=== PATIENT | female | born 1960 | race Caucasian/White ===

== ENCOUNTER 2017-12-09 17:28 | Emergency (ER) | payer MEDICAID, OTHER ==
[~2017-12-09] VITALS: Ht 170.2 cm; Wt 90.7 kg
[~2017-12-09 17:28] MED LIST: IBUPROFEN400 MG PO
[2017-12-09] MEDS ORDERED: UNOBMED (17:36)
[2017-12-09] MEDS ORDERED: Meclizine 25mg tab ORAL STA (17:57)
[2017-12-09] MEDS ORDERED: LORazepam Inj 2mg/ml 1ml IV ONE (18:00)
--- NOTE | 2017-12-09 18:49 | Diagnostic Imaging Report ---
EXAM: XR Chest, 1 View CLINICAL HISTORY: DIZZY TECHNIQUE: Frontal view of the chest. COMPARISON: Chest radiograph 04/22/12 FINDINGS: Lungs: Mild hyperinflation. Minimal left base subsegmental atelectasis. Pleural space: Unremarkable. No pneumothorax. Heart: Unremarkable. No cardiomegaly. Mediastinum: Unremarkable. Bones/joints: Unremarkable. IMPRESSION: 1. Mild hyperinflation. 2. Minimal left base subsegmental atelectasis. 3. Otherwise no acute cardiopulmonary disease.
[2017-12-09 19:20] VITALS: BP 126/70
[2017-12-09 19:35] LABS: APPEARANCE,URINE SLIGHTLY CLOUDY; BILIRUBIN, URINE NEGATIVE (NEGATIVE); COLOR,URINE AMBER; GLUCOSE, URINE (UA) NEGATIVE (NEGATIVE); KETONES,URINE NEGATIVE (NEGATIVE); LEUKOCYTE ESTERASE ,URINE 2+ (NEGATIVE); NITRITE,URINE NEGATIVE (NEGATIVE); PH,URINE 5 (4.5-8.0); PROTEIN,URINE 1+ (NEGATIVE); UROBILINOGEN,URINE NORMAL MG/DL (0.0-1.0)
[2017-12-09 19:37] LABS: BASOPHILS % (AUTO) 0.8 % (0.0-2.0); EOSINOPHILS % (AUTO) 2.3 % (0.0-3.0); HEMATOCRIT 42.5 % (37.0-47.0); HEMOGLOBIN 14.3 G/DL (12.0-16.0); LYMPHOCYTES % (AUTO) 24.3 % (20.0-45.0); MEAN CORPUSCULAR VOLUME 85 FL (80-99); MONOCYTES % (AUTO) 5.2 % (1.0-10.0); NEUTROPHILS % (AUTO) 67.5 % (45.0-75.0); PLATELET COUNT 191 K/UL (150-450); RED BLOOD COUNT 4.99 M/UL (4.20-5.40); RED CELL DISTRIBUTION WIDTH 11.8 % (11.6-14.8); WHITE BLOOD COUNT 14.3 K/UL (4.8-10.8)
[2017-12-09 19:43] LABS: ANION GAP 10 mmol/L (5-15); BLOOD UREA NITROGEN 17 mg/dL (7-18); CALCIUM 9.2 MG/DL (8.5-10.1); CARBON DIOXIDE 27 MMOL/L (21-32); CHLORIDE 105 MMOL/L (98-107); CREATININE 0.8 MG/DL (0.55-1.30); POTASSIUM 4.7 MMOL/L (3.5-5.1); SODIUM 142 MMOL/L (136-145)
[2017-12-09 19:55] LABS: ALANINE AMINOTRANSFERASE 31 U/L (12-78); ALBUMIN 3.7 G/DL (3.4-5.0); ALBUMIN/GLOBULIN RATIO 0.9 (1.0-2.7); ALKALINE PHOSPHATASE 77 U/L (46-116); ASPARTATE AMINO TRANSFERASE 41 U/L (15-37); BILIRUBIN,TOTAL 0.4 MG/DL (0.2-1.0); CREATINE KINASE 103 U/L (26-308)
--- NOTE | 2017-12-09 20:02 | Emergency Room Report ---
History of Present Illness General Chief Complaint: Dizziness Source: Patient, EMS Present Illness HPI The patient presents with dizziness. She also has hot flashes for several months. When she has hot flashes she gets tinnitus in the right ear. This has been worsening with that feeling the world spinning for the last 3 days. She has intense anxiety when this happens. Yesterday she took piece of lorazepam to help her calm down. She denies any headache per se. There is no weakness no tingling. She has any fevers. She's not having vomiting and denies significant nausea at this time. She had a cholecystectomy. There was a question about whether there was cancer (excluded with path - polyps) but she has been anxious about possible cancer. Depressed but no SI. No chest pain, palpitations, dysuria, rashes. Dry eyes. Allergies: Coded Allergies: PINEAPPLE (Verified Allergy, Mild, Anaphylaxis, 04/19/12) Patient History Past Medical History: see triage record Social History: Denies: smoking, alcohol use, drug use Social History Narrative at home with and son Last Menstrual Period: Post Reviewed Nursing Documentation: PMH: Agreed; PSxH: Agreed Nursing Documentation-PMH Hx Hypertension: Yes Hx Gastrointestinal Problems: Yes - Bladder removed 01/2017. Review of Systems All Other Systems: negative except mentioned in HPI Physical Exam Vital Signs Date Time Temp Pulse Resp B/P (MAP) Pulse Ox O2 Delivery O2 Flow Rate FiO2 12/09/17 17:33 98.4 88 18 126/74 98 Room Air 98.4 Sp02 EP Interpretation: reviewed, normal General Appearance: well appearing, no apparent distress, GCS 15 Head: normocephalic Eyes: right eye other - R lid lag; bilateral eye PERRL, bilateral eye EOMI - no nustagmus ENT: TMs + canals normal, moist mucus membranes Neck: supple Respiratory: chest non-tender, lungs clear, normal breath sounds Cardiovascular #1: regular rate, rhythm Cardiovascular #2: 2+ radial (R) Gastrointestinal: normal inspection, non tender, soft, no mass Musculoskeletal: back normal, digits/nails normal, gait/station normal, normal range of motion, no calf tenderness Neurologic: oriented x3, responsive, education specialist III-XII nml as tested - with lid lag R , motor strength/tone normal, DTRs symmetric, cerebellar normal, normal gait, speech normal Psychiatric: anxious Skin: normal color, no rash Medical Decision Making Diagnostic Impression: Primary Impression: Dizziness Additional Impressions: UTI (urinary tract infection) Qualified Codes: N30.00 - Acute cystitis without hematuria Low TSH level Post menopausal syndrome Depression with anxiety ER Course Patient presents with vertigo without nausea. Differential includes central TIA , labyrinthitis, viral syndrome, postmenopausal hot flashes syndrome amongst others. We do exclude cardiac cause. The patient will be on a monitoring and evaluation advisor. We will with the patient up with EKG and labs. CT of the head is not indicated as there is no nystagmus and a nonfocal neurologic exam except for the lid lag on the right-hand side. EKG without injury. CXR normal. Labs with slight elevated WBC. Pyuria. TSH low. Rocephin given in ED. Improved with treatment in ED. Long discussion with patient and family of findings and need for further evaluation and treatment by PMD. Patient stable for outpatient observation and treatment. Laboratory Tests Test 12/09/17 19:15 White Blood Count 14.3 K/UL (4.8-10.8) H Red Blood Count 4.99 M/UL (4.20-5.40) Hemoglobin 14.3 G/DL (12.0-16.0) Hematocrit 42.5 % (37.0-47.0) Mean Corpuscular Volume 85 FL (80-99) Mean Corpuscular Hemoglobin 28.6 PG (27.0-31.0) Mean Corpuscular Hemoglobin Concent 33.6 G/DL (32.0-36.0) Red Cell Distribution Width 11.8 % (11.6-14.8) Platelet Count 191 K/UL (150-450) Mean Platelet Volume 8.9 FL (6.5-10.1) Neutrophils (%) (Auto) 67.5 % (45.0-75.0) Lymphocytes (%) (Auto) 24.3 % (20.0-45.0) Monocytes (%) (Auto) 5.2 % (1.0-10.0) Eosinophils (%) (Auto) 2.3 % (0.0-3.0) Basophils (%) (Auto) 0.8 % (0.0-2.0) Erythrocyte Sedimentation Rate Pending Prothrombin Time 10.0 SEC (9.30-11.50) Prothrombin Time INR 1.0 (0.9-1.1) PTT 23 SEC (23-33) Urine Color Mayra Urine Appearance Slightly cloudy Urine pH 5 (4.5-8.0) Urine Specific [place] 1.020 (1.005-1.035) Urine Protein 1+ (NEGATIVE) H Urine Glucose (UA) Negative (NEGATIVE) Urine Ketones Negative (NEGATIVE) Urine Occult Blood Negative (NEGATIVE) Urine Nitrite Negative (NEGATIVE) Urine Bilirubin Negative (NEGATIVE) Urine Ictotest Negative Urine Urobilinogen Normal MG/DL (0.0-1.0) Urine Leukocyte Esterase 2+ (NEGATIVE) H Urine RBC 0-2 /HPF (0 - 2) Urine WBC 10-15 /HPF (0 - 2) H Urine Squamous Epithelial Cells Many /LPF (NONE/OCC) H Urine Bacteria Few /HPF (NONE) Urine HCG, Qualitative Negative (NEGATIVE) Sodium Level 142 MMOL/L (136-145) Potassium Level 4.7 MMOL/L (3.5-5.1) Chloride Level 105 MMOL/L (98-107) Carbon Dioxide Level 27 MMOL/L (21-32) Anion Gap 10 mmol/L (5-15) Blood Urea Nitrogen 17 mg/dL (7-18) Creatinine 0.8 MG/DL (0.55-1.30) Estimate Glomerular Filtration Rate > 60 mL/min (>60) Glucose Level 110 MG/DL (74-106) H Calcium Level 9.2 MG/DL (8.5-10.1) Total Bilirubin 0.4 MG/DL (0.2-1.0) Aspartate Amino Transferase (AST) 41 U/L (15-37) H Alanine Aminotransferase (ALT) 31 U/L (12-78) Alkaline Phosphatase 77 U/L (46-116) Total Creatine Kinase 103 U/L (26-308) Troponin I 0.000 ng/mL (0.000-0.056) Pro-B-Type Natriuretic Peptide 37 pg/mL (0-125) Total Protein 7.9 G/DL (6.4-8.2) Albumin 3.7 G/DL (3.4-5.0) Globulin 4.2 g/dL Albumin/Globulin Ratio 0.9 (1.0-2.7) L Thyroid Stimulating Hormone (TSH) 0.332 uiU/mL (0.358-3.740) Urine Opiates Screen Negative (NEGATIVE) Urine Barbiturates Screen Negative (NEGATIVE) Phencyclidine (PCP) Screen Negative (NEGATIVE) Urine Amphetamines Screen Negative (NEGATIVE) Urine Benzodiazepines Screen Negative (NEGATIVE) Urine Cocaine Screen Negative (NEGATIVE) Urine Marijuana (THC) Screen Negative (NEGATIVE) EKG Diagnostic Results Rate: normal Rhythm: NSR ST Segments: no acute changes Rhythm Strip Diag. Results EP Interpretation: yes Rhythm: NSR, no PVC's, no ectopy Last Vital Signs Date Time Temp Pulse Resp B/P (MAP) Pulse Ox O2 Delivery O2 Flow Rate FiO2 12/09/17 21:25 98.2 89 16 122/72 98 Room Air 98.2 Status: improved Disposition: HOME, SELF-CARE Condition: Improved Scripts Lorazepam* (ATIVAN*) 0.5 Mg Tablet 0.5 MG ORAL THREE TIMES A DAY, #10 TAB Prov: Krishan Duval M.D. 12/09/17 Meclizine Hcl* (MECLIZINE*) 25 Mg Tablet 25 MG ORAL THREE TIMES A DAY PRN for for dizziness, #10 TAB Prov: Krishan Duval M.D. 12/09/17 Nitrofurantoin Monohyd/M-Cryst* (MACROBID 100 MG*) 100 Mg Capsule 100 MG ORAL EVERY 12 HOURS, #14 CAP Prov: Krishan Duval M.D. 12/09/17 Krishan Duval M.D. Dec 09, 2017 20:02
[2017-12-09] MEDS ORDERED: OMEPRAZOLE20 M2 ORAL (20:03)
[2017-12-09] MEDS ORDERED: IBUPROFEN600 MG ORAL (20:03)
[2017-12-09] MEDS ORDERED: CREON DR 36,001 EACH PO (20:03)
[2017-12-09] MEDS ORDERED: AMLODIPINE BESYL5 MG ORAL (20:03)
[2017-12-09] MEDS ORDERED: VITAMIN B COMP1 EAC2 ORAL (20:04)
[2017-12-09] MEDS ORDERED: OMEGA 3 1,0001 EACH PO (20:04)
[2017-12-09] MEDS ORDERED: LORAZEPAM0.5 MG ORAL (20:11)
[2017-12-09] MEDS ORDERED: cefTRIAXone 1 GM in NS 55 ML IVPB ONE (20:15)
[2017-12-09] MEDS ORDERED: MECLIZINE HCL25 MG ORAL (21:11)
[2017-12-09] MEDS ORDERED: NITROFURANTOIN100 M2 ORAL (21:11)
[2017-12-09 21:20] VITALS: BP 122/72
[2017-12-09] MEDS ORDERED: ATIVAN0.5 MG ORAL (21:22)
[2017-12-09 21:25] VITALS: BP 122/72
--- NOTE | 2017-12-12 14:13 | Cardiology Report ---
APPROVED REPORT EKG Measurement Heart [id number] Normal sinus rhythm Possible Left atrial enlargement Borderline ECG
== END 2017-12-09 22:45 | disposition home or self-care (01) ==
LOC: EDBD 17:28 → EMR 22:03
DX: N30.00 Acute cystitis without hematuria (principal); R42 Dizziness and giddiness; N95.9 Unspecified menopausal and perimenopausal disorder; F41.8 Other specified anxiety disorders; F32.9 Major depressive disorder, single episode, unspecified; I10 Essential (primary) hypertension; Z91.018 Allergy to other foods; Z90.49 Acquired absence of other specified parts of digestive tract; R94.6 Abnormal results of thyroid function studies
CPT/HCPCS: 36415; 71045; 80053; 80307; 81003; 81025; 82550; 83880; 84443; 84484; 85025; 85610; 85651; 85730; 87086; 93005; 96360; 96374; 96375; 99284; J0696

== ENCOUNTER 2018-01-16 18:40 | Emergency (ER) | payer MEDICAID ==
[~2018-01-16] VITALS: Ht 167.6 cm; Wt 83.9 kg
[~2018-01-16 18:40] MED LIST changes: +AMLODIPINE BESYL5 MG ORAL; +ATIVAN0.5 MG ORAL; +CREON DR 36,001 EACH PO; +IBUPROFEN600 MG ORAL; +LORAZEPAM0.5 MG ORAL; +MECLIZINE HCL25 MG ORAL; +NITROFURANTOIN100 M2 ORAL; +OMEGA 3 1,0001 EACH PO; +OMEPRAZOLE20 M2 ORAL; +UNOBMED; +VITAMIN B COMP1 EAC2 ORAL
[2018-01-16 19:40] VITALS: BP 141/95
[2018-01-16 19:56] LABS: BASOPHILS % (AUTO) 0.9 % (0.0-2.0); EOSINOPHILS % (AUTO) 1.3 % (0.0-3.0); HEMATOCRIT 41.8 % (37.0-47.0); HEMOGLOBIN 13.9 G/DL (12.0-16.0); LYMPHOCYTES % (AUTO) 33.4 % (20.0-45.0); MEAN CORPUSCULAR VOLUME 84 FL (80-99); MONOCYTES % (AUTO) 5.8 % (1.0-10.0); NEUTROPHILS % (AUTO) 58.7 % (45.0-75.0); PLATELET COUNT 188 K/UL (150-450); RED BLOOD COUNT 4.97 M/UL (4.20-5.40); RED CELL DISTRIBUTION WIDTH 12.3 % (11.6-14.8); WHITE BLOOD COUNT 12.1 K/UL (4.8-10.8)
[2018-01-16 19:57] LABS: APPEARANCE,URINE CLEAR; BILIRUBIN, URINE NEGATIVE (NEGATIVE); COLOR,URINE AMBER; GLUCOSE, URINE (UA) NEGATIVE (NEGATIVE); KETONES,URINE NEGATIVE (NEGATIVE); LEUKOCYTE ESTERASE ,URINE NEGATIVE (NEGATIVE); NITRITE,URINE NEGATIVE (NEGATIVE); PH,URINE 6 (4.5-8.0); PROTEIN,URINE NEGATIVE (NEGATIVE); UROBILINOGEN,URINE NORMAL MG/DL (0.0-1.0)
[2018-01-16 20:02] LABS: ANION GAP 9 mmol/L (5-15); BLOOD UREA NITROGEN 16 mg/dL (7-18); CALCIUM 9.4 MG/DL (8.5-10.1); CARBON DIOXIDE 28 MMOL/L (21-32); CHLORIDE 106 MMOL/L (98-107); POTASSIUM 3.4 MMOL/L (3.5-5.1); SODIUM 142 MMOL/L (136-145)
[2018-01-16 20:28] LABS: ALANINE AMINOTRANSFERASE 25 U/L (12-78); ALBUMIN 3.8 G/DL (3.4-5.0); ALKALINE PHOSPHATASE 77 U/L (46-116); ASPARTATE AMINO TRANSFERASE 19 U/L (15-37); BILIRUBIN,TOTAL 0.3 MG/DL (0.2-1.0); CKMB < 0.5 NG/ML (0.0-3.6); CREATINE KINASE 55 U/L (26-308)
[2018-01-16 20:40] VITALS: BP 136/90
[2018-01-16 21:40] VITALS: BP 139/88
--- NOTE | 2018-01-16 22:02 | Emergency Room Report ---
History of Present Illness General Chief Complaint: Generalized Weakness Source: Patient, Medical Record Present Illness HPI The patient states she has had multiple episodes of hot flashes that she states starts in her pelvis and then radiates to her head. She states that at times she is feels a bubbling sensation in her head. She states these episodes are debilitating. She states that these have been ongoing for many years, however, over the past few months the episodes become more severe and more debilitating. She has seen her primary care physician and has had an extensive workup to include hormonal testing and other laboratory testing. She will be seeing a design sales consultant. She denies fever or chills. She denies weakness. She has no other complaints. Allergies: Coded Allergies: PINEAPPLE (Verified Allergy, Mild, Anaphylaxis, 04/19/12) Patient History Past Medical History: see triage record, HTN Social History: Denies: smoking, alcohol use, drug use Last Menstrual Period: 4 yrs ago Reviewed Nursing Documentation: PMH: Agreed; PSxH: Agreed Nursing Documentation-PMH Past Medical History: No History, Except For Hx Hypertension: Yes Hx Gastrointestinal Problems: Yes - Bladder removed 01/2017. Review of Systems All Other Systems: negative except mentioned in HPI Physical Exam Vital Signs Date Time Temp Pulse Resp B/P (MAP) Pulse Ox O2 Delivery O2 Flow Rate FiO2 01/16/18 18:51 98.4 88 18 138/86 95 Room Air 98.4 Sp02 EP Interpretation: reviewed, normal General Appearance: no apparent distress, alert, GCS 15, non-toxic Head: normocephalic, atraumatic Eyes: bilateral eye normal inspection, bilateral eye PERRL ENT: hearing grossly normal, normal pharynx, no angioedema, normal voice Neck: full range of motion, supple/symm/no masses Respiratory: chest non-tender, lungs clear, normal breath sounds, no respiratory distress, no retraction, no accessory muscle use, speaking full sentences Cardiovascular #1: regular rate, rhythm, no edema Gastrointestinal: normal bowel sounds, non tender, soft, non-distended, no guarding, no rebound Rectal: deferred Musculoskeletal: back normal, gait/station normal, normal range of motion, non- tender Neurologic: alert, oriented x3, responsive, motor strength/tone normal, sensory intact, speech normal Psychiatric: judgement/insight normal, memory normal, mood/affect normal, no suicidal/homicidal ideation Skin: normal color, no rash, warm/dry, well hydrated Medical Decision Making Diagnostic Impression: Primary Impression: Post menopausal syndrome ER Course Suspect this patient has postmenopausal syndrome. She did undergo laboratory workup to include CBC, CMP and cardiac enzymes. She underwent an EKG which is unremarkable. She also underwent CT of the head which is also unremarkable. Unsure of the exact etiology of the patient's symptoms, however, I do not suspect an emergency medical condition. The patient is instructed to follow-up with an vinyl cutter and a design sales consultant. She is also instructed to use other methods of decreasing her anxiety. She is given close return precautions about instructions. Laboratory Tests Test 01/16/18 19:11 White Blood Count 12.1 K/UL (4.8-10.8) H Red Blood Count 4.97 M/UL (4.20-5.40) Hemoglobin 13.9 G/DL (12.0-16.0) Hematocrit 41.8 % (37.0-47.0) Mean Corpuscular Volume 84 FL (80-99) Mean Corpuscular Hemoglobin 28.0 PG (27.0-31.0) Mean Corpuscular Hemoglobin Concent 33.3 G/DL (32.0-36.0) Red Cell Distribution Width 12.3 % (11.6-14.8) Platelet Count 188 K/UL (150-450) Mean Platelet Volume 10.3 FL (6.5-10.1) H Neutrophils (%) (Auto) 58.7 % (45.0-75.0) Lymphocytes (%) (Auto) 33.4 % (20.0-45.0) Monocytes (%) (Auto) 5.8 % (1.0-10.0) Eosinophils (%) (Auto) 1.3 % (0.0-3.0) Basophils (%) (Auto) 0.9 % (0.0-2.0) Urine Color Mayra Urine Appearance Clear Urine pH 6 (4.5-8.0) Urine Specific [place] 1.020 (1.005-1.035) Urine Protein Negative (NEGATIVE) Urine Glucose (UA) Negative (NEGATIVE) Urine Ketones Negative (NEGATIVE) Urine Occult Blood Negative (NEGATIVE) Urine Nitrite Negative (NEGATIVE) Urine Bilirubin Negative (NEGATIVE) Urine Ictotest Negative Urine Urobilinogen Normal MG/DL (0.0-1.0) Urine Leukocyte Esterase Negative (NEGATIVE) Sodium Level 142 MMOL/L (136-145) Potassium Level 3.4 MMOL/L (3.5-5.1) L Chloride Level 106 MMOL/L (98-107) Carbon Dioxide Level 28 MMOL/L (21-32) Anion Gap 9 mmol/L (5-15) Blood Urea Nitrogen 16 mg/dL (7-18) Creatinine 1.0 MG/DL (0.55-1.30) Estimate Glomerular Filtration Rate 57.1 mL/min (>60) Glucose Level 97 MG/DL (74-106) Calcium Level 9.4 MG/DL (8.5-10.1) Total Bilirubin 0.3 MG/DL (0.2-1.0) Aspartate Amino Transferase (AST) 19 U/L (15-37) Alanine Aminotransferase (ALT) 25 U/L (12-78) Alkaline Phosphatase 77 U/L (46-116) Total Creatine Kinase 55 U/L (26-308) Creatine Kinase MB < 0.5 NG/ML (0.0-3.6) Creatine Kinase MB Relative Index 0.9 Troponin I 0.000 ng/mL (0.000-0.056) Total Protein 7.7 G/DL (6.4-8.2) Albumin 3.8 G/DL (3.4-5.0) Globulin 3.9 g/dL Albumin/Globulin Ratio 1.0 (1.0-2.7) EKG Diagnostic Results Rate: normal Rhythm: NSR ST Segments: no acute changes Rhythm Strip Diag. Results EP Interpretation: yes Rate: 90's Rhythm: NSR, no PVC's, no ectopy Chest X-Ray Diagnostic Results Chest X-Ray Diagnostic Results : Chest X-Ray Ordered: Yes # of Views/Limited/Complete: 1 View Indication: Other EP Interpretation: Yes Interpretation: no consolidation, no effusion, no pneumothorax, no acute cardiopulmonary disease Impression: No acute disease Electronically Signed by: Sravan CT/MRI/US Diagnostic Results CT/MRI/US Diagnostic Results : Imaging Test Ordered: Ct head Impression No acute findings. See official report. Last Vital Signs Date Time Temp Pulse Resp B/P (MAP) Pulse Ox O2 Delivery O2 Flow Rate FiO2 01/16/18 19:40 98.4 88 16 141/95 95 Room Air 98.4 Disposition: HOME, SELF-CARE Condition: Stable Referrals: MANDEEP KERN (PCP) Catherine Calabrese DO Jan 16, 2018 22:01
[2018-01-16 22:05] VITALS: BP 139/88
--- NOTE | 2018-01-17 08:59 | Diagnostic Imaging Report ---
Indication: Dyspnea Technique: One view of the chest Comparison: 12/09/2017 Findings: Inspiration is suboptimal. Aorta is tortuous. Lungs and pleural spaces are clear. Previously demonstrated left basilar atelectasis is no longer evident Impression: No acute process
--- NOTE | 2018-01-17 09:04 | Diagnostic Imaging Report ---
. Indication: Vertigo and weakness x3 months Technique: Continuous helical CT scanning of the head was performed without intravenous contrast material. Axial and coronal 5 mm sections were generated. Radiation dose was minimized using automated exposure control Dose: Total Dose Length Product - DLP 1287.[address] Dose Index - CTDIvol(s) 70.38 mGy. Comparison: none Findings: The ventricular system is normal in size and configuration. There is no shift of midline structures. No abnormal extra-axial fluid collections are noted. There is no evidence of intracerebral bleeding. No other abnormal high or low density areas are noted within the brain. Huang-white differentiation is normal. Intact calvarium. Mild calvarial hyperostosis. Visualized orbits and sinuses are unremarkable. The mastoids are clear Impression: Normal CT scan of the head without contrast material. This agrees with the preliminary interpretation provided overnight by [facility] teleradiology service. The CT scanner at [facility] is accredited by the [employer] and the scans are performed using protocols designed to limit radiation exposure to as low as reasonably achievable to attain images of sufficient resolution adequate for diagnostic evaluation.
--- NOTE | 2018-01-18 17:35 | Cardiology Report ---
APPROVED REPORT EKG Measurement Heart [id number] Normal sinus rhythm Possible Left atrial enlargement Borderline ECG
== END 2018-01-16 22:00 | disposition home or self-care (01) ==
LOC: EMR 19:29
DX: N95.9 Unspecified menopausal and perimenopausal disorder (principal); I10 Essential (primary) hypertension; R42 Dizziness and giddiness
CPT/HCPCS: 36415; 70450; 71045; 80053; 81003; 82550; 82553; 84484; 85025; 93005; 99284

== ENCOUNTER 2018-01-21 15:01 | Inpatient (IN) | payer MEDICAID ==
[~2018-01-21] VITALS: Ht 167.6 cm; Wt 87.1 kg
[2018-01-21 15:10] VITALS: BP_SYST 140; BP_SYST 143; BP_DIAS 70; BP_DIAS 73
[2018-01-21] MEDS ORDERED: Sodium Chloride 500ML 500 ML IV ONE (15:23)
[2018-01-21] MEDS ORDERED: Meclizine 25mg tab ORAL ONE (15:30)
[2018-01-21 16:03] LABS: BASOPHILS % (AUTO) 0.6 % (0.0-2.0); EOSINOPHILS % (AUTO) 1.2 % (0.0-3.0); HEMATOCRIT 40.8 % (37.0-47.0); HEMOGLOBIN 13.9 G/DL (12.0-16.0); LYMPHOCYTES % (AUTO) 31.4 % (20.0-45.0); MEAN CORPUSCULAR VOLUME 83 FL (80-99); NEUTROPHILS % (AUTO) 61.8 % (45.0-75.0); PLATELET COUNT 171 K/UL (150-450); RED BLOOD COUNT 4.94 M/UL (4.20-5.40); WHITE BLOOD COUNT 10.3 K/UL (4.8-10.8)
[2018-01-21 16:22] LABS: ANION GAP 11 mmol/L (5-15); BLOOD UREA NITROGEN 13 mg/dL (7-18); CALCIUM 9.5 MG/DL (8.5-10.1); CARBON DIOXIDE 25 MMOL/L (21-32); CHLORIDE 107 MMOL/L (98-107); CREATININE 0.7 MG/DL (0.55-1.30); POTASSIUM 3.8 MMOL/L (3.5-5.1); SODIUM 143 MMOL/L (136-145)
--- NOTE | 2018-01-21 16:24 | Emergency Room Report ---
History of Present Illness General Chief Complaint: Dizziness Source: Patient Present Illness HPI Patient presents with complaints of significant dizziness patient feels very weak Patient was here recently with similar complaints reports that this is been ongoing now for 2 weeks Denies any focal weakness patient does get increased nausea Denies any chest pain or shortness of breath denies any dysuria or frequency Denies any change in medications Denies any recent travel Allergies: Coded Allergies: PINEAPPLE (Verified Allergy, Mild, Anaphylaxis, 04/19/12) Patient History Past Medical History: see triage record Pertinent Family History: none Reviewed Nursing Documentation: PMH: Agreed; PSxH: Agreed Nursing Documentation-PMH Hx Hypertension: Yes Hx Gastrointestinal Problems: Yes - Bladder removed 01/2017. Review of Systems All Other Systems: negative except mentioned in HPI Physical Exam Vital Signs Date Time Temp Pulse Resp B/P (MAP) Pulse Ox O2 Delivery O2 Flow Rate FiO2 01/21/18 14:56 98.5 86 18 135/86 96 Room Air 98.4 Sp02 EP Interpretation: reviewed, normal General Appearance: no apparent distress - However appears generally weak Head: normocephalic, atraumatic Eyes: bilateral eye PERRL, bilateral eye EOMI ENT: normal pharynx, no angioedema Neck: full range of motion, supple Respiratory: chest non-tender, lungs clear Cardiovascular #1: regular rate, rhythm, no edema Gastrointestinal: normal bowel sounds, non tender, soft Musculoskeletal: normal inspection, back normal Neurologic: alert, oriented x3 Skin: normal color, no rash Lymphatic: no adenopathy Medical Decision Making Diagnostic Impression: Primary Impression: Dizziness ER Course Patient is a fairly complex patient with multiple differential to consideration including but not limited to neurological , neurosurgical ,cardiac cardiopulmonary and vascular emergencies Patient had recent CT of the head obtained this was not repeated Baseline blood work however were repeated all within normal limits Given the patient's symptomatic presentation and severe distress Patient requires further inpatient care with evaluation of cerebellar type differentials Labs Test 01/21/18 15:38 White Blood Count 10.3 K/UL (4.8-10.8) Red Blood Count 4.94 M/UL (4.20-5.40) Hemoglobin 13.9 G/DL (12.0-16.0) Hematocrit 40.8 % (37.0-47.0) Mean Corpuscular Volume 83 FL (80-99) Mean Corpuscular Hemoglobin 28.2 PG (27.0-31.0) Mean Corpuscular Hemoglobin Concent 34.1 G/DL (32.0-36.0) Red Cell Distribution Width 12.0 % (11.6-14.8) Platelet Count 171 K/UL (150-450) Mean Platelet Volume 9.7 FL (6.5-10.1) Neutrophils (%) (Auto) 61.8 % (45.0-75.0) Lymphocytes (%) (Auto) 31.4 % (20.0-45.0) Monocytes (%) (Auto) 5.0 % (1.0-10.0) Eosinophils (%) (Auto) 1.2 % (0.0-3.0) Basophils (%) (Auto) 0.6 % (0.0-2.0) Sodium Level 143 MMOL/L (136-145) Potassium Level 3.8 MMOL/L (3.5-5.1) Chloride Level 107 MMOL/L (98-107) Carbon Dioxide Level 25 MMOL/L (21-32) Anion Gap 11 mmol/L (5-15) Blood Urea Nitrogen 13 mg/dL (7-18) Creatinine 0.7 MG/DL (0.55-1.30) Estimat Glomerular Filtration Rate > 60 mL/min (>60) Glucose Level 97 MG/DL (74-106) Calcium Level 9.5 MG/DL (8.5-10.1) Total Bilirubin 0.3 MG/DL (0.2-1.0) Aspartate Amino Transf (AST/SGOT) 23 U/L (15-37) Alanine Aminotransferase (ALT/SGPT) 22 U/L (12-78) Alkaline Phosphatase 75 U/L (46-116) Total Creatine Kinase 57 U/L (26-308) Creatine Kinase MB 0.5 NG/ML (0.0-3.6) Creatine Kinase MB Relative Index 0.8 Troponin I 0.000 ng/mL (0.000-0.056) Total Protein 7.8 G/DL (6.4-8.2) Albumin 3.9 G/DL (3.4-5.0) Globulin 3.9 g/dL Albumin/Globulin Ratio 1.0 (1.0-2.7) Lipase 166 U/L (73-393) EKG Diagnostic Results Rate: normal Rhythm: NSR ST Segments: no acute changes Rhythm Strip Diag. Results EP Interpretation: yes Rate: 66 Rhythm: NSR, no PVC's, no ectopy Last Vital Signs Date Time Temp Pulse Resp B/P (MAP) Pulse Ox O2 Delivery O2 Flow Rate FiO2 01/21/18 15:10 98.2 86 16 140/70 98 Room Air 98.2 Status: improved Disposition: ADMITTED INPATIENT Condition: Serious Referrals: [facility],REFERRING (PCP) Delfino Gonzalez DO Jan 21, 2018 16:24
[2018-01-21 16:36] LABS: ALANINE AMINOTRANSFERASE 22 U/L (12-78); ALBUMIN 3.9 G/DL (3.4-5.0); ALKALINE PHOSPHATASE 75 U/L (46-116); ASPARTATE AMINO TRANSFERASE 23 U/L (15-37); BILIRUBIN,TOTAL 0.3 MG/DL (0.2-1.0); CKMB 0.5 NG/ML (0.0-3.6); CREATINE KINASE 57 U/L (26-308)
[2018-01-21 17:06] VITALS: BP 127/72
[2018-01-21 18:45] VITALS: BP 142/72
[2018-01-21] MEDS ORDERED: NKM (19:28)
[2018-01-21 19:48] VITALS: BP 132/70
[2018-01-21 20:50] VITALS: BP 134/82
[2018-01-21] MEDS ORDERED: LORazepam 0.5mg tab ORAL PRN (22:00)
[2018-01-21] MEDS ORDERED: Meclizine 25mg tab ORAL PRN (22:00)
[2018-01-22 04:00] VITALS: BP 123/83
[2018-01-22 07:57] VITALS: BP 139/87
[2018-01-22] MEDS ORDERED: Vitamin B Complex Tab ORAL SCH (09:00)
[2018-01-22 11:40] VITALS: BP 129/93
--- NOTE | 2018-01-22 11:47 | Diagnostic Imaging Report ---
Indication: Weakness Technique: MRI the brain performed utilizing T1 sagittal, T2 axial, T1 FLAIR axial, T2 FLAIR axial, T2*GRE and diffusion axial images without gadolinium. Comparison: Contrast-enhanced CT of the head 01/16/2018 Findings: No diffusion abnormalities are seen on diffusion weighted imaging. The sulci, ventricles and cisterns are within normal limits for age. Very minimal periventricular white matter T2 hyperintensity are seen without mass effect and system with sequela of chronic microvascular ischemic change. There is no shift of midline structures. No significant extra-axial collections of fluid or blood are demonstrated. The sella and parasellar regions are grossly unremarkable. Expected signal flow voids are seen of the vessels of the skull base. Visualized mastoid air cells unremarkable. No focal bony calvarium or soft tissue lesions are seen. IMPRESSION: No acute infarct. No acute intracranial hemorrhage. No mass effect, midline shift or cortical edema.
--- NOTE | 2018-01-22 15:00 | History and Physical Report ---
DATE OF ADMISSION: 01/21/2018 HISTORY OF PRESENT ILLNESS: This is a 57-year-old female, who came to the emergency room last night with episode of dizziness. The patient reports she has been having dizzy episodes for the last six months. She states she has gone to the primary care physician, who had not referred her to any specialist. She states she has had no care and no workup for the last six months. The patient has been here at this hospital at least once before in the last two weeks for similar problem. PAST MEDICAL HISTORY: Notable for no known medical illnesses. The patient is however noted to be on Adderall for ADHD. She also takes Advil and Ativan for headaches and meclizine for dizziness. HOME MEDICATIONS: Norvasc, vitamin D, Macrobid, Advil, Ativan, meclizine, and Adderall. ALLERGIES: To pineapple. REVIEW OF SYSTEMS: Denies any headaches, hematemesis, melena, or hematochezia. PHYSICAL EXAMINATION: GENERAL: Revealed a 57-year-old female. VITAL SIGNS: Blood pressure is 130/90, heart rate 84, respirations , and she is afebrile. HEENT: Unremarkable. LUNGS: Clear breath sounds bilaterally with normal heart sounds. ABDOMEN: Soft. EXTREMITIES: There is no edema. NEUROLOGIC: Nonfocal. LABORATORY AND DIAGNOSTIC DATA: Lab testing showed normal CBC and BMP. Troponin is negative. A head CT was done a week ago, which showed no abnormalities. X-ray of the chest was negative, this was also done last week. IMPRESSION: 1. Recurrent dizziness. 2. Hypertension. 3. ADD. DISCUSSION: We will admit to the hospital. I will order MRI brain, if negative we will discharge and arrange outpatient followup with Neurology and Endocrinology. Bowen Bautista M.D. DR: KARMEN JOB#: [id number] CC:
--- NOTE | 2018-01-23 09:09 | Discharge Summary ---
Discharge Summary Discharge Summary _ DATE OF ADMISSION: 01/21/2018 DATE OF DISCHARGE: 2017 REASON FOR ADMISSION: 57 years old female with past medical history significant for attention deficit disorder, on Adderall, presented to emergency room with complaint of dizziness. Patient had dizzy episodes for last 6 months. Patient had seen her primary care provider but was not referred to any specialist. The patient was in ED one week prior for the same complaint. At that time CT of the head revealed no acute intracranial pathology, and chest x-ray revealed no acute pulmonary pulmonary pathology. Upon evaluation in emergency department vital signs were stable, except elevated blood pressure. Laboratory workup was unremarkable. Patient admitted with diagnoses of recurrent dizziness, hypertension, attention deficit disorder. HOSPITAL COURSE: Patient admitted. Patient undergone MRI of the brain which revealed no acute intracranial pathology. Blood pressure was managed with low dose of calcium channel loreta and remained stable. Antivert provided as needed for dizziness, symptomatically. Fall precautions maintained. Patient was able to ambulate independently. Dizziness resolved. Patient was cleared for discharge home with outpatient follow-up with neurology and endocrinology. Due to rapid and unexpected improvement in patient's condition, the patient was discharged in one day. FINAL DIAGNOSES: Recurrent dizziness Hypertension Attention deficit disorder DISCHARGE MEDICATIONS: See Medication Reconciliation list. DISCHARGE INSTRUCTIONS: Patient was discharged home. Outpatient follow-up with neurology and endocrinology I have been assigned to dictate discharge summary for this account. I was not involved in the patient's management. Gabriela Negro NP Jan 23, 2018 09:09
== END 2018-01-22 14:20 | disposition home or self-care (01) | DRG 111 ==
LOC: EDBD 15:01 → EMR 15:33 → 4W 19:25 → EDBEDREQ 19:52
DX: R42 Dizziness and giddiness (principal); F98.8 Other specified behavioral and emotional disorders with onset usually occurring in childhood and adolescence; I10 Essential (primary) hypertension
CPT/HCPCS: 36415; 70551; 80053; 82550; 82553; 83690; 84484; 85025; 93005

== ENCOUNTER 2020-03-02 16:50 | Emergency (ER) | payer MEDICAID ==
[~2020-03-02] VITALS: Ht 167.6 cm; Wt 83.9 kg
[~2020-03-02 16:50] MED LIST changes: +NKM
--- NOTE | 2020-03-02 17:10 | Emergency Room Report ---
History of Present Illness General Chief Complaint: Palpitations Source: Patient Present Illness HPI 59-year-old female history of hypertension on amlodipine here because "I felt my heart drop a beat." Patient says that she felt the same sensation years ago and went to follow-up with her primary care doctor who performed an EKG that was normal. Patient says that she experiences this every now and then. Says that earlier today she was checking her heart rate and said "it will be normally , and then it will suddenly drop a beat and then be normal again." Patient denies any headaches, vision changes, lightheadedness, syncope, presyncope, chest pain, palpitations, shortness of breath, back pain, abdominal pain, nausea , vomiting, diarrhea, dysuria. Allergies: Coded Allergies: PINEAPPLE (Verified Allergy, Mild, Anaphylaxis, 04/19/12) COVID-19 Screening Contact w/high risk pt: No Experienced COVID-19 symptoms?: No COVID-19 Testing performed MATCHING MACHINE OPERATOR: No Patient History Last Menstrual Period: na Nursing Documentation-[facility] Past Medical History: No History, Except For Hx Hypertension: Yes Hx Gastrointestinal Problems: Yes - Bladder removed 01/2017. Review of Systems All Other Systems: negative except mentioned in HPI Physical Exam Vital Signs Date Time Temp Pulse Resp B/P (MAP) Pulse Ox O2 Delivery O2 Flow Rate FiO2 03/02/20 16:50 99.1 80 16 141/89 (106) 95 Room Air Sp02 EP Interpretation: reviewed, normal General Appearance: no apparent distress, alert, non-toxic Head: normocephalic, atraumatic Eyes: bilateral eye normal inspection, bilateral eye PERRL ENT: hearing grossly normal, normal pharynx, no angioedema, normal voice Neck: full range of motion, supple/symm/no masses Respiratory: chest non-tender, lungs clear, normal breath sounds, speaking full sentences Cardiovascular #1: regular rate, rhythm, no edema Cardiovascular #2: 2+ carotid (R), 2+ carotid (L), 2+ radial (R), 2+ radial (L) , 2+ dorsalis pedis (R), 2+ dorsalis pedis (L) Gastrointestinal: normal bowel sounds, non tender, soft, non-distended, no guarding, no rebound Rectal: deferred Genitourinary: normal inspection, no CVA tenderness Musculoskeletal: back normal, normal range of motion, calf tenderness, gait/ station normal, non-tender Neurologic: alert, motor strength/tone normal, oriented x3, sensory intact, responsive, speech normal Psychiatric: judgement/insight normal, memory normal, mood/affect normal, no suicidal/homicidal ideation Lymphatic: no adenopathy Medical Decision Making Diagnostic Impression: Primary Impression: Palpitations ER Course Laboratory Tests Test 03/02/20 17:25 White Blood Count 11.3 K/UL (4.8-10.8) H Red Blood Count 5.06 M/UL (4.20-5.40) Hemoglobin 14.0 G/DL (12.0-16.0) Hematocrit 44.0 % (37.0-47.0) Mean Corpuscular Volume 87 FL (80-99) Mean Corpuscular Hemoglobin 27.7 PG (27.0-31.0) Mean Corpuscular Hemoglobin Concent 31.9 G/DL (32.0-36.0) L Red Cell Distribution Width 13.0 % (11.6-14.8) Platelet Count 203 K/UL (150-450) Mean Platelet Volume 9.9 FL (6.5-10.1) Neutrophils (%) (Auto) 60.9 % (45.0-75.0) Lymphocytes (%) (Auto) 30.8 % (20.0-45.0) Monocytes (%) (Auto) 6.0 % (1.0-10.0) Eosinophils (%) (Auto) 1.5 % (0.0-3.0) Basophils (%) (Auto) 0.7 % (0.0-2.0) Sodium Level 143 MMOL/L (136-145) Potassium Level 3.6 MMOL/L (3.5-5.1) Chloride Level 107 MMOL/L (98-107) Carbon Dioxide Level 26 MMOL/L (21-32) Anion Gap 10 mmol/L (5-15) Blood Urea Nitrogen 11 mg/dL (7-18) Creatinine 0.8 MG/DL (0.55-1.30) Estimated Glomerular Filtration Rate > 60 mL/min (>60) Glucose Level 91 MG/DL (74-106) Calcium Level 9.5 MG/DL (8.5-10.1) Magnesium Level 2.4 MG/DL (1.8-2.4) Total Bilirubin 0.3 MG/DL (0.2-1.0) Aspartate Amino Transferase (AST) 16 U/L (15-37) Alanine Aminotransferase (ALT) 19 U/L (12-78) Alkaline Phosphatase 73 U/L (46-116) Troponin I 0.000 ng/mL (0.000-0.056) Total Protein 7.2 G/DL (6.4-8.2) Albumin 3.9 G/DL (3.4-5.0) Globulin 3.3 g/dL Albumin/Globulin Ratio 1.2 (1.0-2.7) EKG: EKG: NSR, no ischemia, intervals WNL. No ectopy Rhythm strip: patient monitored for arrhythmias - no malignant dysrhythmias, runs of PVCs, nor pauses noted. Rate 79 bpm 59-year-old female here with the sensation of "my heart dropped beat" earlier in the day. Patient was on the panel monitor here in the emergency department for several hours. At no point did she ever exhibited any bradycardia, dysrhythmia, tachycardia. EKG was completely normal without any evidence of dropped beats, Mobitz arrhythmias, complete heart block, or any other abnormalities. She was in no distress whatsoever in the emergency department. Electrolytes normal. Labs otherwise unremarkable. Troponin negative. Patient was given information of follow-up with her primary care physician. Told to come back to the emergency department if she feels any worsening palpitations, lightheadedness, chest pain. Discharged in stable condition. Last Vital Signs Date Time Temp Pulse Resp B/P (MAP) Pulse Ox O2 Delivery O2 Flow Rate FiO2 03/02/20 16:50 99.1 80 16 141/89 (106) 95 Room Air Referrals: [facility],REFERRING (PCP) Wali Campbell M.D. Mar 02, 2020 17:09
[2020-03-02 17:31] VITALS: BP 156/88
--- NOTE | 2020-03-02 17:32 | NUR ---
ED Nurse Note: pt brought in by ambulance from home due to pt felt "heartbeat dropping" once in awhile. per pt, it started yesterday by 1300. pt aao x4 and ambulatory. skin clean and intact. calm and cooperative. pt denied chest pain, SOB, cough, or fever. 12 lead EKG normal sinus rythm. vs stable as documented. pt is in gown and on telemetry monitor.
[2020-03-02 17:39] LABS: BASOPHILS % (AUTO) 0.7 % (0.0-2.0); EOSINOPHILS % (AUTO) 1.5 % (0.0-3.0); LYMPHOCYTES % (AUTO) 30.8 % (20.0-45.0); MEAN CORPUSCULAR VOLUME 87 FL (80-99); NEUTROPHILS % (AUTO) 60.9 % (45.0-75.0); PLATELET COUNT 203 K/UL (150-450); RED BLOOD COUNT 5.06 M/UL (4.20-5.40); WHITE BLOOD COUNT 11.3 K/UL (4.8-10.8)
[2020-03-02 17:47] LABS: ANION GAP 10 mmol/L (5-15); BLOOD UREA NITROGEN 11 mg/dL (7-18); CALCIUM 9.5 MG/DL (8.5-10.1); CARBON DIOXIDE 26 MMOL/L (21-32); CHLORIDE 107 MMOL/L (98-107); CREATININE 0.8 MG/DL (0.55-1.30); POTASSIUM 3.6 MMOL/L (3.5-5.1); SODIUM 143 MMOL/L (136-145)
[2020-03-02 17:52] LABS: ALANINE AMINOTRANSFERASE 19 U/L (12-78); ALBUMIN 3.9 G/DL (3.4-5.0); ALBUMIN/GLOBULIN RATIO 1.2 (1.0-2.7); ALKALINE PHOSPHATASE 73 U/L (46-116); ASPARTATE AMINO TRANSFERASE 16 U/L (15-37); BILIRUBIN,TOTAL 0.3 MG/DL (0.2-1.0)
[2020-03-02 18:33] VITALS: BP 156/88
--- NOTE | 2020-03-02 18:35 | NUR ---
ED Nurse Note: Pt cleared by health care Provider for discharge. DC instructions was given and explained to pt and verbalized understanding of teachings. All medical deviecs such as ID band removed. Pt is AAO x4, ambulatory and left with all personal belongings. pt's son picked her up.
== END 2020-03-02 18:35 | disposition home or self-care (01) ==
LOC: EDBD 16:50 → EMR 17:07
DX: R00.2 Palpitations (principal); I10 Essential (primary) hypertension; Z91.018 Allergy to other foods
CPT/HCPCS: 36415; 80053; 83735; 84484; 85025; 93005; Z7502; 99283

== ENCOUNTER 2020-03-30 10:51 | Emergency (ER) | payer MEDICAID ==
[~2020-03-30] VITALS: Ht 170.2 cm; Wt 82.6 kg
[2020-03-30] MEDS ORDERED: DiphenhydrAMINE 50mg/ml Inj IVP ONE (11:30)
--- NOTE | 2020-03-30 11:33 | Emergency Room Report ---
History of Present Illness General Chief Complaint: Generalized Weakness Source: Patient Present Illness HPI 59-year-old female history of recurrent headaches presents with generalized gradual onset of frontal headache that feels like a pounding sensation generally alleviated with ibuprofen no aggravating factors severity is moderate, progressive, constant, no fevers no chills no chest pain or shortness of breath, he does endorse some nausea no vomiting, she denies any pain in the recumbent position patient presents for evaluation and treatment Allergies: Coded Allergies: PINEAPPLE (Verified Allergy, Mild, Anaphylaxis, 04/19/12) COVID-19 Screening Contact w/high risk pt: No Experienced COVID-19 symptoms?: No COVID-19 Testing performed HAT LINER: No Patient History Past Medical History: see triage record Last Menstrual Period: na Reviewed Nursing Documentation: PMH: Agreed; PSxH: Agreed Nursing Documentation-PMH Hx Hypertension: Yes Hx Gastrointestinal Problems: Yes - Bladder removed 01/2017. Review of Systems All Other Systems: negative except mentioned in HPI Physical Exam Vital Signs Date Time Temp Pulse Resp B/P (MAP) Pulse Ox O2 Delivery O2 Flow Rate FiO2 03/30/20 10:59 98.1 74 19 123/76 (92) 98 Room Air Sp02 EP Interpretation: reviewed, normal General Appearance: well appearing, no apparent distress, alert Head: normocephalic, atraumatic Eyes: bilateral eye PERRL, bilateral eye EOMI ENT: uvula midline, moist mucus membranes Neck: supple, thyroid normal, supple/symm/no masses Respiratory: lungs clear, no respiratory distress, no retraction, no accessory muscle use Cardiovascular #1: normal peripheral pulses, regular rate, rhythm, no edema, no gallop, no murmur Gastrointestinal: non tender, soft, no guarding, no rebound Musculoskeletal: normal inspection Neurologic: alert, motor strength/tone normal, hosiery looper III-XII nml as tested, oriented x3, cerebellar normal - Finger-nose testing intact, negative pronator , speech normal, normal gait, no pronator Psychiatric: mood/affect normal Skin: no rash, warm/dry Medical Decision Making Diagnostic Impression: Primary Impression: UTI (urinary tract infection) Qualified Codes: N30.00 - Acute cystitis without hematuria Additional Impression: Headache Qualified Codes: R51 - Headache ER Course Based on the patient's history and physical there is very low clinical suspicion for significant intracranial pathology. There are no red flags of BOYD, not sudden in onset, not maximal in onset, no acute neurological findings, no fever with head stiffness. History of headaches yes Low suspicion for subarachnoid hemorrhage, encephalitis, meningitis. Patient improved with Compazine administration patient refused Decadron, work-up is thus far negative, CT head negative, cranial nerves intact, neuro exam completely unremarkable reevaluation at 1:15 PM patient states headache has completely resolved disposition home with return cautions incidental finding of UTI will treat patient with Keflex and follow-up with PCP Laboratory Tests Test 03/30/20 11:20 White Blood Count 10.8 K/UL (4.8-10.8) Red Blood Count 5.56 M/UL (4.20-5.40) H Hemoglobin 15.3 G/DL (12.0-16.0) Hematocrit 46.5 % (37.0-47.0) Mean Corpuscular Volume 84 FL (80-99) Mean Corpuscular Hemoglobin 27.5 PG (27.0-31.0) Mean Corpuscular Hemoglobin Concent 32.8 G/DL (32.0-36.0) Red Cell Distribution Width 12.6 % (11.6-14.8) Platelet Count 242 K/UL (150-450) Mean Platelet Volume 9.0 FL (6.5-10.1) Neutrophils (%) (Auto) 71.3 % (45.0-75.0) Lymphocytes (%) (Auto) 22.7 % (20.0-45.0) Monocytes (%) (Auto) 4.3 % (1.0-10.0) Eosinophils (%) (Auto) 1.1 % (0.0-3.0) Basophils (%) (Auto) 0.6 % (0.0-2.0) Prothrombin Time 11.0 SEC (9.30-11.50) Prothrombin Time INR 1.0 (0.9-1.1) Activated Partial Thromboplast Time 26 SEC (23-33) Urine Color Pale yellow Urine Appearance Clear Urine pH 5 (4.5-8.0) Urine Specific [place] 1.005 (1.005-1.035) Urine Protein Negative (NEGATIVE) Urine Glucose (UA) Negative (NEGATIVE) Urine Ketones 1+ (NEGATIVE) H Urine Blood Negative (NEGATIVE) Urine Nitrite Negative (NEGATIVE) Urine Bilirubin Negative (NEGATIVE) Urine Urobilinogen Normal MG/DL (0.0-1.0) Urine Leukocyte Esterase 3+ (NEGATIVE) H Urine RBC 0 /HPF (0 - 2) Urine WBC 5-10 /HPF (0 - 2) H Urine Squamous Epithelial Cells Few /LPF (NONE/OCC) Urine Bacteria Occasional /HPF (NONE) Sodium Level 142 MMOL/L (136-145) Potassium Level 3.9 MMOL/L (3.5-5.1) Chloride Level 107 MMOL/L (98-107) Carbon Dioxide Level 25 MMOL/L (21-32) Anion Gap 10 mmol/L (5-15) Blood Urea Nitrogen 14 mg/dL (7-18) Creatinine 0.9 MG/DL (0.55-1.30) Estimated Glomerular Filtration Rate > 60 mL/min (>60) Glucose Level 95 MG/DL (74-106) Calcium Level 9.3 MG/DL (8.5-10.1) Phosphorus Level 3.4 MG/DL (2.5-4.9) Magnesium Level 2.3 MG/DL (1.8-2.4) Total Bilirubin 0.3 MG/DL (0.2-1.0) Aspartate Amino Transferase (AST) 15 U/L (15-37) Alanine Aminotransferase (ALT) 17 U/L (12-78) Alkaline Phosphatase 77 U/L (46-116) Troponin I 0.000 ng/mL (0.000-0.056) Pro-B-Type Natriuretic Peptide 51 pg/mL (0-125) Total Protein 8.0 G/DL (6.4-8.2) Albumin 4.2 G/DL (3.4-5.0) Globulin 3.8 g/dL Albumin/Globulin Ratio 1.1 (1.0-2.7) Lipase 169 U/L (73-393) Thyroid Stimulating Hormone (TSH) 1.228 uiU/mL (0.358-3.740) Free Thyroxine 1.15 NG/DL (0.76-1.46) Free Triiodothyronine 2.3 pg/mL (2.3-4.2) Microbiology Date/Time Source Procedure Growth Status 03/30/20 12:40 Nasopharynx SARS-CoV-2 RdRp Gene Assay - Final Complete EKG Diagnostic Results EKG Time: 11:14 EP Interpretation: NSR, rate 74, QTc 435, no acute ST lesions, left axis deviat ion Rhythm Strip Diag. Results Rhythm Strip Time: 11:33 EP Interpretation: yes Rate: 78 Rhythm: NSR, no PVC's, no ectopy Chest X-Ray Diagnostic Results Chest X-Ray Diagnostic Results : Chest X-Ray Ordered: Yes # of Views/Limited/Complete: 1 View Indication: Chest Pain EP Interpretation: Yes Interpretation: no consolidation, no effusion, no pneumothorax, no acute cardiopulmonary disease Impression: No acute disease Electronically Signed by: Janak Stover MD CT/MRI/US Diagnostic Results CT/MRI/US Diagnostic Results : Impression Procedure: CT Head no Contrast Indications: Pain Technique: Spiral acquisitions obtained through the brain. Angled axial and coronal 5 x 5 mm slices were reconstructed. Total dose length product 1045 mGycm. CTDI vol(s) 53 mGy. Dose reduction achieved using automated exposure control Comparison: 01/16/2018 Findings: No acute intracranial hemorrhage or edema. No mass effect nor midline shift. Normal size ventricles and extra axial CSF spaces. Normal beltrán-white differentiation. The calvarium is intact. There is frontal calvarial hy perostosis is incidentally noted. The mastoids are clear. Visualized orbits and sinuses are unremarkable. There is no significant interim change Impression: Negative The CT scanner at [facility] is accredited by the [employer] and the scans are performed using protocols designed to limit radiation exposure to as low as reasonably achievable to attain images of sufficient resolution adequate for diagnostic evaluation. Dictated By: Supa Houston MD Electronically Signed By:Supa Houston MD Signed Date/Time03/30/20 1324 CC: Janak Stover [id number] 0 Last Vital Signs Date Time Temp Pulse Resp B/P (MAP) Pulse Ox O2 Delivery O2 Flow Rate FiO2 03/30/20 10:59 98.1 74 19 123/76 (92) 98 Room Air Disposition: HOME, SELF-CARE Condition: Stable Scripts Cephalexin* (KEFLEX*) 500 Mg Tablet 500 MG ORAL EVERY 6 HOURS, #20 CAP Prov: Janak Stover MD 03/30/20 Referrals: [facility] Patient Instructions: General Headache Without Cause, [id number], Urinary Tract Infection, [id number] Additional Instructions: The patient was provided with discharge instructions, notified to follow-up with a primary care doctor and or specialist in the next 24-48 hours, and to return to the ED if they have worsening of their symptoms. Please note that this report is being documented using DRAGON technology. This can lead to erroneous entry secondary to incorrect interpretation by the dictating instrument. Janak Stover MD Mar 30, 2020 11:33
[2020-03-30 11:37] LABS: BASOPHILS % (AUTO) 0.6 % (0.0-2.0); EOSINOPHILS % (AUTO) 1.1 % (0.0-3.0); HEMATOCRIT 46.5 % (37.0-47.0); HEMOGLOBIN 15.3 G/DL (12.0-16.0); LYMPHOCYTES % (AUTO) 22.7 % (20.0-45.0); MEAN CORPUSCULAR VOLUME 84 FL (80-99); MONOCYTES % (AUTO) 4.3 % (1.0-10.0); NEUTROPHILS % (AUTO) 71.3 % (45.0-75.0); PLATELET COUNT 242 K/UL (150-450); RED BLOOD COUNT 5.56 M/UL (4.20-5.40); RED CELL DISTRIBUTION WIDTH 12.6 % (11.6-14.8); WHITE BLOOD COUNT 10.8 K/UL (4.8-10.8)
[2020-03-30 11:42] VITALS: BP 143/87
[2020-03-30 11:43] LABS: APPEARANCE,URINE CLEAR; BILIRUBIN, URINE NEGATIVE (NEGATIVE); COLOR,URINE PALE YELLOW; GLUCOSE, URINE (UA) NEGATIVE (NEGATIVE); KETONES,URINE 1+ (NEGATIVE); LEUKOCYTE ESTERASE ,URINE 3+ (NEGATIVE); NITRITE,URINE NEGATIVE (NEGATIVE); PH,URINE 5 (4.5-8.0); PROTEIN,URINE NEGATIVE (NEGATIVE); UROBILINOGEN,URINE NORMAL MG/DL (0.0-1.0)
[2020-03-30 11:46] LABS: ANION GAP 10 mmol/L (5-15); BLOOD UREA NITROGEN 14 mg/dL (7-18); CALCIUM 9.3 MG/DL (8.5-10.1); CARBON DIOXIDE 25 MMOL/L (21-32); CHLORIDE 107 MMOL/L (98-107); CREATININE 0.9 MG/DL (0.55-1.30); POTASSIUM 3.9 MMOL/L (3.5-5.1); SODIUM 142 MMOL/L (136-145)
[2020-03-30 12:02] LABS: ALANINE AMINOTRANSFERASE 17 U/L (12-78); ALBUMIN 4.2 G/DL (3.4-5.0); ALBUMIN/GLOBULIN RATIO 1.1 (1.0-2.7); ALKALINE PHOSPHATASE 77 U/L (46-116); ASPARTATE AMINO TRANSFERASE 15 U/L (15-37); BILIRUBIN,TOTAL 0.3 MG/DL (0.2-1.0); PHOSPHORUS 3.4 MG/DL (2.5-4.9)
[2020-03-30] MEDS ORDERED: Cephalexin 500mg cap ORAL ONE (12:15)
--- NOTE | 2020-03-30 13:30 | Diagnostic Imaging Report ---
Indications: Pain Technique: Spiral acquisitions obtained through the brain. Angled axial and coronal 5 x 5 mm slices were reconstructed. Total dose length product 1045 mGycm. CTDI vol(s) 53 mGy. Dose reduction achieved using automated exposure control Comparison: 01/16/2018 Findings: No acute intracranial hemorrhage or edema. No mass effect nor midline shift. Normal size ventricles and extra axial CSF spaces. Normal beltrán-white differentiation. The calvarium is intact. There is frontal calvarial hyperostosis is incidentally noted. The mastoids are clear. Visualized orbits and sinuses are unremarkable. There is no significant interim change Impression: Negative The CT scanner at [facility] is accredited by the [employer] and the scans are performed using protocols designed to limit radiation exposure to as low as reasonably achievable to attain images of sufficient resolution adequate for diagnostic evaluation.
[2020-03-30] MEDS ORDERED: CEPHALEXIN500 M1 ORAL (13:35)
[2020-03-30 13:42] VITALS: BP 132/78
--- NOTE | 2020-03-30 17:37 | Diagnostic Imaging Report ---
Indication: Shortness of breath Technique: One view of the chest Comparison: 01/16/2018 Findings: Lungs and pleural spaces are clear. Heart size is normal. No significant change Impression: No acute process
--- NOTE | 2020-03-31 13:46 | Cardiology Report ---
APPROVED REPORT EKG Measurement Heart [id number] <Conclusion> Normal sinus rhythm Cannot rule out Anterior infarct, age undetermined Abnormal ECG
== END 2020-03-30 13:42 | disposition home or self-care (01) ==
LOC: EMR 11:10
DX: R51 Headache (principal); N30.00 Acute cystitis without hematuria; Z91.018 Allergy to other foods; I10 Essential (primary) hypertension; Z90.6 Acquired absence of other parts of urinary tract
CPT/HCPCS: 36415; 70450; 71045; 80053; 81003; 83690; 83735; 83880; 84100; 84439; 84443; 84481; 84484; 85025; 85610; 85730; 93005; 96361; 96374; 96375; J0780; J1200; J7030; U0002; Z7502; 99284

== ENCOUNTER 2020-04-15 15:33 | Emergency (ER) | payer MEDICAID ==
[~2020-04-15] VITALS: Ht 167.6 cm; Wt 77.1 kg
[~2020-04-15 15:33] MED LIST changes: +CEPHALEXIN500 M1 ORAL
--- NOTE | 2020-04-15 16:00 | NUR ---
ED Nurse Note: Pt ambulated to ED from home d/t pelvic pain and vaginal burning going on for 1 week. Pt was seen here @ [facility] for UTI 2 weeks ago, received abx, finished them, pain came back worse. Pt is AOx4, calm and cooperative, VSS, on RA, afebrile on triage.
--- NOTE | 2020-04-15 16:02 | NUR ---
ED Nurse Note: urine collected, sent to lab
[2020-04-15 16:09] LABS: BILIRUBIN, URINE NEGATIVE (NEGATIVE); COLOR,URINE PALE YELLOW; GLUCOSE, URINE (UA) NEGATIVE (NEGATIVE); KETONES,URINE 3+ (NEGATIVE); LEUKOCYTE ESTERASE ,URINE 2+ (NEGATIVE); NITRITE,URINE NEGATIVE (NEGATIVE); PH,URINE 5 (4.5-8.0); PROTEIN,URINE NEGATIVE (NEGATIVE); UROBILINOGEN,URINE NORMAL MG/DL (0.0-1.0)
[2020-04-15 16:12] LABS: APPEARANCE,URINE SLIGHTLY CLOUDY
--- NOTE | 2020-04-15 16:32 | Emergency Room Report ---
History of Present Illness General Chief Complaint: Pelvic Pain Source: Patient Present Illness HPI 60 YO female presents w. lower abdominal pressure pain with vaginal burning sensation. pt reports dysuria as well. she states she has external vaginal burning pain that extends towards the rectum too. She denies fevers or chills. She denies abdominal tenderness. She denies discharge. She reports recent abx use as she was treated over 2 weeks ago for UTI. pt reports current symptoms onset x 1 week. She denies hematuria. She reports urinary frequency. She states she is going through menopause. She reports using an OTC cream externally with no relief. Allergies: Coded Allergies: PINEAPPLE (Verified Allergy, Mild, Anaphylaxis, 04/19/12) COVID-19 Screening Contact w/high risk pt: No Experienced COVID-19 symptoms?: No COVID-19 Testing performed UNIX ADMINISTRATOR: No Patient History Past Medical History: see triage record Past Surgical History: none, christina Pertinent Family History: none Now: No Reviewed Nursing Documentation: PMH: Agreed; PSxH: Agreed Nursing Documentation-PMH Past Medical History: No History, Except For Hx Hypertension: Yes Hx Gastrointestinal Problems: Yes - Bladder removed 01/2017. Review of Systems All Other Systems: negative except mentioned in HPI Physical Exam Vital Signs Date Time Temp Pulse Resp B/P (MAP) Pulse Ox O2 Delivery O2 Flow Rate FiO2 04/15/20 15:41 98.6 86 20 94 Room Air Sp02 EP Interpretation: reviewed, normal General Appearance: no apparent distress, alert, GCS 15, non-toxic Head: normocephalic, atraumatic Eyes: bilateral eye normal inspection, bilateral eye PERRL ENT: hearing grossly normal, normal voice Neck: full range of motion Respiratory: chest non-tender, lungs clear, normal breath sounds, speaking full sentences Cardiovascular #1: regular rate, rhythm Gastrointestinal: normal bowel sounds, non tender, soft, non-distended, no guarding Rectal: deferred Genitourinary: normal inspection, no CVA tenderness, adnexa normal, other - scant white DC in the vaginal vault. mild erythematous appearance to the external labia Musculoskeletal: back normal, normal range of motion, gait/station normal, non- tender Neurologic: alert, motor strength/tone normal, oriented x3, sensory intact, responsive, speech normal Psychiatric: judgement/insight normal Skin: normal color, rash - erythema and slight maceration to the external labia Lymphatic: no adenopathy Medical Decision Making PA Attestation Dr. Elmore is my supervising Physician whom patient management has been discussed with. Diagnostic Impression: Primary Impression: Vaginitis and vulvovaginitis Additional Impression: Uterine fibroid Qualified Codes: D25.9 - Leiomyoma of uterus, unspecified ER Course 60 YO female presents w. lower abdominal pressure pain with vaginal burning sensation. pt reports dysuria as well. she states she has external vaginal burning pain that extends towards the rectum too. She denies fevers or chills. She denies abdominal tenderness. She denies discharge. She reports recent abx use as she was treated over 2 weeks ago for UTI. pt reports current symptoms onset x 1 week. She denies hematuria. She reports urinary frequency. She states she is going through menopause. She reports using an OTC cream externally with no relief. Ddx considered but are not limited to UTi , Pyelo, STI, Stone, Cystitis, vaginal laceration, vaginitis. Vital signs: are WNL, pt. is afebrile H& PE are most consistent with: Vaginitis ORDERS: - UA labs are attached: WBC's elevated at 5-10, and 2+ leukocytes, many squamous and few bacteria. 3+ ketones ---- similar to UA results from last visit. - Wet Mount : moderate bacteria, moderate WBC's, No clue cells, no trich, no yeast. -Pelvic US: 2cm fibroid ED INTERVENTIONS: -Diflucan PO DISCHARGE: At this time pt. is stable for d/c to home. Will provide printed patient care instructions, and any necessary prescriptions. Care plan and follow up instructions have been discussed with the patient prior to discharge. di scussed with the patient prior to discharge. Labs Test 04/15/20 15:55 Urine Color Pale yellow Urine Appearance Slightly cloudy Urine pH 5 (4.5-8.0) Urine Specific [place] 1.010 (1.005-1.035) Urine Protein Negative (NEGATIVE) Urine Glucose (UA) Negative (NEGATIVE) Urine Ketones 3+ (NEGATIVE) Urine Blood Negative (NEGATIVE) Urine Nitrite Negative (NEGATIVE) Urine Bilirubin Negative (NEGATIVE) Urine Urobilinogen Normal MG/DL (0.0-1.0) Urine Leukocyte Esterase 2+ (NEGATIVE) Urine RBC 0-2 /HPF (0 - 2) Urine WBC 10-15 /HPF (0 - 2) Urine Squamous Epithelial Cells Many /LPF (NONE/OCC) Urine Bacteria Few /HPF (NONE) CT/MRI/US Diagnostic Results CT/MRI/US Diagnostic Results : Imaging Test Ordered: Pelvic US Impression " 2cm fibroid, no torsion, no ovarian cysts. normal ovarian flow ." --Per official radiology report- Please see report for specific details. Last Vital Signs Date Time Temp Pulse Resp B/P (MAP) Pulse Ox O2 Delivery O2 Flow Rate FiO2 04/15/20 15:58 98.6 20 94 Room Air 04/15/20 15:41 86 Disposition: HOME, SELF-CARE Condition: Stable Referrals: [facility],REFERRING (PCP) Patient Instructions: Uterine Fibroids, [id number], Vaginitis Additional Instructions: Take medications as directed. Follow up with a Primary Care Provider in 3-5 days, even if your symptoms have resolved. Return sooner to ED if new symptoms occur, or current symptoms become worse. - Please note that this Emergency Department Report was dictated using [email or web address] fitter technology software, occasionally this can lead to erroneous entry secondary to interpretation by the dictation equipment. Huma Orellana Apr 15, 2020 16:32
--- NOTE | 2020-04-15 18:35 | NUR ---
ED Nurse Note: US tech at bedside
--- NOTE | 2020-04-15 19:00 | NUR ---
ED Nurse Note: Endorsed care of pt. US tech finished US, pt awake alert oriented, able to ambulate with steady gait. No acute distress noted. Informed pt EDMD will review US results and will receive update.
--- NOTE | 2020-04-15 19:16 | Diagnostic Imaging Report ---
EXAM: US Pelvis Transabdominal and Transvaginal, Complete CLINICAL HISTORY: PAIN TECHNIQUE: Real-time complete transabdominal and transvaginal pelvic ultrasound with image documentation. Transvaginal imaging was used for better evaluation of the endometrium and adnexa. COMPARISON: No relevant prior studies available. FINDINGS: Uterus/cervix: Uterus measures 6.2 x 4.3 x 3.7 cm. Probably uterine fibroid measuring about 2 cm. Endometrium is not delineated. Heterogeneous parenchyma with some possibly calcifications. Right ovary: Right ovary measures 2.1 x 1.8 x 2.0 cm. No complex lesion or torsion. Left ovary: Left ovary measures 3.3 x 2.6 x 2.9 cm. No complex lesion or torsion. Bladder: Unremarkable as visualized. Wall is normal thickness for degree of distention. IMPRESSION: No complex adnexal lesions or torsion.
[2020-04-15] MEDS ORDERED: Fluconazole 150mg tab ORAL ONE (19:30)
[2020-04-15] MEDS ORDERED: FLUCONAZOLE100 MG ORAL (19:34)
[2020-04-15 19:40] VITALS: BP 121/70
--- NOTE | 2020-04-15 19:41 | NUR ---
ER DISCHARGE NOTE: Patient is cleared to be discharged per ERMD, ABX precription electronicaly sent to prefered pharmacy. pt is aox4, on room air, with stable vital signs. pt id band removed. pt is able to ambulate with steady gait. pt took all belongings.
== END 2020-04-15 19:40 | disposition home or self-care (01) ==
LOC: EMR 16:00
DX: D25.9 Leiomyoma of uterus, unspecified (principal); N76.0 Acute vaginitis; Z91.018 Allergy to other foods; Z90.6 Acquired absence of other parts of urinary tract; I10 Essential (primary) hypertension
CPT/HCPCS: 76830; 76856; 81003; 87086; 87210; Z7502; 99284